=== PATIENT | male | born 1950 | race Caucasian/White ===

== ENCOUNTER 2016-09-03 04:11 | Inpatient (IN) ==
[2016-08-28 15:51] LABS: MANUAL DIFF NEEDED? NO; URINE MICRO REVIEW NEEDED? NO; URINE SOURCE CLEAN CATCH
[2016-08-28 15:54] LABS: BASO% 0.4 % (0.0-0.8); EOS% 3.2 % (0.0-10.0); HEMATOCRIT 51.9 % (42.0-52.0); HEMOGLOBIN 17.6 g/dL (14.0-18.0); IMM GRAN# 0.03 X1000 (0.0-0.04); IMM GRAN% 0.3 % (0.0-0.5); LYMPH# 2.29 X1000 (1.2-3.4); LYMPH% 24.3 % (20.5-51.1); MCH 29.7 PG (27-31); MCHC 33.9 g/dL (33-37); MCV 87.5 FL (81-99); MONO# 1.42 X1000 (0.11-0.59); MONO% 15.1 % (1.7-9.3); MPV 9.5 FL (7.4-10.4); NEUT% 56.7 % (42.2-75.2); PLT 208 X1000 (130-400); RBC 5.93 XMIL (4.7-6.1)
[2016-08-28 15:59] LABS: BILIRUBIN URINE NEGATIVE (NEGATIVE); BLOOD URINE NEGATIVE (NEGATIVE); COLOR YELLOW; GLUCOSE URINE NEGATIVE (NEGATIVE); LEUKOCYTES URINE TRACE (NEGATIVE); NITRITE URINE NEGATIVE (NEGATIVE); PH URINE 6.5; PROTEIN URINE NEGATIVE (NEGATIVE); SP GRAVITY URINE 1.015; TURBIDITY URINE CLEAR (CLEAR); UROBILINOGEN URINE 2 mg/dL (NORMAL)
[2016-08-28 16:00] LABS: UR EPITHELIAL CELLS <10 /HPF (<10); URINE BACTERIA NEGATIVE /HPF; URINE RBC <10 /HPF (<10); URINE WBC <10 /HPF (<10)
[2016-08-28 16:03] LABS: PROTIME 10.5 Seconds (9.2-11.7); PTT 28.7 Seconds (22.0-36.0)
[2016-08-28 16:26] LABS: AGAP 12; BUN 15 mg/dL (8-22); CALCIUM 9.4 mg/dL (8.8-10.2); CHLORIDE 97 mmol/L (98-107); COSMO 270; POTASSIUM 4.2 mmol/L (3.5-5.1); SODIUM 135 mmol/L (136-145); TCO2 26 mmol/L (25-35)
--- NOTE | 2016-08-28 17:03 | EKG Report ---
Test Performed on : 08/28/2016 3:23:25 PM Test Reason : PAT Blood Pressure : / mmHG Vent. Rate : 066 BPM Atrial Rate : 066 BPM P-R Int : 126 ms QRS Dur : 102 ms QT Int : 394 ms P-R-T Axes : 031 049 025 degrees QTc Int : 413 ms Normal sinus rhythm. Normal ECG When compared with ECG of 20-DEC-2014 09:11, No significant change was found Confirmed by Izabela GOMEZ, Avinash Hanson ([id number]) on 08/29/2016 3:29:34 PM
[2016-09-03] MEDS ORDERED: REGLAN ONE (08:24)
[2016-09-03] MEDS ORDERED: PEPCID ONE (08:24)
[2016-09-03] MEDS ORDERED: COLACE ONE (08:24)
[2016-09-03] MEDS ORDERED: LYRICA ONE (08:25)
[2016-09-03] MEDS ORDERED: LR 1,000 ML ONE ×2 (08:25→14:13)
[2016-09-03] MEDS ORDERED: CELEBREX ONE (08:25)
[2016-09-03] MEDS ORDERED: KEFZOL 2 GM/D5W 2 GM/50 ML IVPB ONE (08:25)
[2016-09-03] MEDS ORDERED: DIPRIVAN 1% 0 MG/0 ML BOTTLE ONE (10:00)
[2016-09-03] MEDS ORDERED: SODIUM CHLORIDE 0.9% ONE (10:17)
[2016-09-03] MEDS ORDERED: NEOSPORIN G.U. IRRIGANT ONE (10:17)
[2016-09-03] MEDS ORDERED: EXPAREL 1.3% ONE (10:17)
[2016-09-03] MEDS ORDERED: VANCOMYCIN ONE (10:17)
[2016-09-03] MEDS ORDERED: CYKLOKAPRON 1,000 MG/NS 1,000 MG/100 ML IVPB ONE ×2 (10:17→10:18)
[2016-09-03] MEDS ORDERED: TORADOL ONE (10:17)
[2016-09-03] MEDS ORDERED: MARCAINE 0.25% PF/EPI 1:200,000 ONE (10:17)
[2016-09-03 11:25] LABS: URINE MICRO REVIEW NEEDED? NO; URINE SOURCE CATH
[2016-09-03 11:36] LABS: BILIRUBIN URINE NEGATIVE (NEGATIVE); BLOOD URINE NEGATIVE (NEGATIVE); COLOR YELLOW; GLUCOSE URINE NEGATIVE (NEGATIVE); LEUKOCYTES URINE NEGATIVE (NEGATIVE); NITRITE URINE NEGATIVE (NEGATIVE); PROTEIN URINE TRACE mg/dL (NEGATIVE); TURBIDITY URINE CLEAR (CLEAR); UROBILINOGEN URINE 3 mg/dL (NORMAL)
[2016-09-03 11:37] LABS: UR EPITHELIAL CELLS <10 /HPF (<10); URINE BACTERIA NEGATIVE /HPF; URINE RBC <10 /HPF (<10); URINE WBC <10 /HPF (<10)
[2016-09-03] MEDS ORDERED: NS 1,000 ML ONE (13:57)
[2016-09-03] MEDS ORDERED: FENTANYL ONE (14:03)
[2016-09-03] MEDS ORDERED: DIPRIVAN 1% ONE (14:04)
[2016-09-03] MEDS ORDERED: NEOSTIGMINE ONE (14:12)
[2016-09-03] MEDS ORDERED: ROBINUL ONE (14:12)
[2016-09-03] MEDS ORDERED: SODIUM CHLORIDE 0.9% 10 ML ONE (14:12)
[2016-09-03] MEDS ORDERED: ZOFRAN ONE (14:12)
[2016-09-03] MEDS ORDERED: XYLOCAINE-MPF 2% ONE (14:13)
[2016-09-03] MEDS ORDERED: ZEMURON ONE (14:13)
[2016-09-03] MEDS ORDERED: DECADRON ONE (14:13)
[2016-09-03] MEDS ORDERED: OFIRMEV 1000 MG/ISOTONIC SOLN 1,000 MG/100 ML BOTTLE ONE (14:13)
[2016-09-03] MEDS ORDERED: QUELICIN (DOSE) ONE (14:13)
--- NOTE | 2016-09-03 14:31 | Diag Imaging Result Doc PS360 ---
EXAM: KNEE 1-2 VIEWS-RIGHT HISTORY: right TKA TECHNIQUE: Crosstable lateral and AP portable COMMENT: There is apparent revision of the total knee arthroplasty which was present on 08/31/2013. There appears to be appropriate alignment. IMPRESSION: Postsurgical changes. Electronically signed by Steven Simpson 09/03/2016 2:28 PM
[2016-09-03] MEDS: MORPHINE ONE ×2 (14:52→14:57)
[2016-09-03] MEDS ORDERED: MORPHINE IV PRN (16:00)
[2016-09-03] MEDS ORDERED: ZOFRAN PO PRN (16:00)
[2016-09-03] MEDS ORDERED: MILK OF MAGNESIA PO PRN (16:00)
[2016-09-03] MEDS: TYLENOL PO SCH ×2 (16:09→22:00)
[2016-09-03] MEDS: KEFZOL 1 GM/D5W 1 GM/50 ML IVPB IV SCH (18:37)
[2016-09-03] MEDS: NS 1,000 ML IV SCH (18:38)
[2016-09-03] MEDS: OXY IR PO PRN (18:40)
[2016-09-03] MEDS: COLACE PO SCH (21:47)
[2016-09-03] MEDS: PERIDEX MT SCH (21:47)
[2016-09-04] MEDS: NS 1,000 ML IV SCH (03:46)
[2016-09-04] MEDS: KEFZOL 1 GM/D5W 1 GM/50 ML IVPB IV SCH (03:46)
[2016-09-04] MEDS: TYLENOL PO SCH ×2 (03:46→10:58)
[2016-09-04 06:00] LABS: HEMATOCRIT 46.1 % (42.0-52.0); HEMOGLOBIN 15.2 g/dL (14.0-18.0)
[2016-09-04] MEDS ORDERED: XARELTO PO SCH (06:00)
[2016-09-04 06:27] LABS: AGAP 11; BUN 12 mg/dL (8-22); CALCIUM 8.3 mg/dL (8.8-10.2); CHLORIDE 104 mmol/L (98-107); COSMO 282; POTASSIUM 4.6 mmol/L (3.5-5.1); SODIUM 141 mmol/L (136-145); TCO2 26 mmol/L (25-35)
[2016-09-04] MEDS ORDERED: PEPCID PO SCH (09:00)
[2016-09-04] MEDS ORDERED: KEFZOL 2 GM/D5W 2 GM/50 ML IVPB IV ONE (09:00)
[2016-09-04] MEDS: COLACE PO SCH (10:49)
[2016-09-04] MEDS: PERIDEX MT SCH (10:49)
[2016-09-04] MEDS: OXY IR PO PRN (10:58)
[2016-09-04 12:01] VITALS: BP 127/65
--- NOTE | 2016-09-04 13:43 | OPERATIVE NOTE ---
PROCEDURE DATE: 09/03/2016 PREOPERATIVE DIAGNOSIS: Right painful total knee arthroplasty. POSTOPERATIVE DIAGNOSIS: Right painful total knee arthroplasty. PROCEDURE: Revision right total knee arthroplasty with DePuy Sigma TC3 size 4 femur with a size 40 universal fluted stem, a 75 x 16 universal fluted stem, and a size 3 tibial tray with a 53 metaphyseal sleeve, and a 75 x 14 universal fluted stem, 10 mm rotating platform tibial insert. SURGEON: Jd Stallings MD STAFF THERAPIST: EZEQUIEL Vergara SECOND FINE GRADE OPERATOR: Vinicius Mari RN ANESTHESIA: General. IV FLUIDS: 1800 mL lactated Ringer. ESTIMATED BLOOD LOSS: 75 mL. TOURNIQUET TIME: 121 minutes at 350 mmHg. COMPLICATIONS: None. INDICATION: The patient is a pleasant 66-year-old male status post right total knee arthroplasty on 08/31/2013. The patient has had a long standing history of postoperative stiffness and significant pain and discomfort. He has continued pain and discomfort despite and continued worsening symptoms and recommendation to proceed with revision right total knee arthroplasty was offered. Risks and benefits of surgery were explained, including the risks of anesthesia, , bleeding, infection, failure to relieve pain, postop stiffness, nerve injury, blood clots, and other imponderables. All questions were answered, the patient and family wished to proceed with surgery. DESCRIPTION OF PROCEDURE: Patient was taken to the operating room, placed supine on the operating table. Once adequate anesthesia was obtained, patient's right lower extremity was subsequently prepped and draped in the usual sterile fashion. Esmarch was used to exsanguinate the right lower extremity. The tourniquet was inflated to 350 mmHg. A standard anterior incision made through the previous surgical incision. Medial and skin envelopes were developed. Standard medial parapatellar arthrotomy was then performed. Intraoperative cultures were obtained and a stat Gram stain was negative. There were no signs symptoms of infection. After adequate dissection and elevation had been performed, retractors were placed. The tibial insert was then removed. Attention was then turned to the distal femur where osteotome was used around the femoral component to loosen the component and then subsequently removed. A saw was then used just inferior to the tibial component proximal for removal of this as well. The tibial tray was then removed. The cement was then removed with a small osteotome on the tibia. After removal of all cement and further dissection of scar tissue of posterior capsule was excised off the proximal tibia. After this had been performed, attention then turned to the proximal tibia. Sequential reaming was then conducted up to size 14. The proximal tibia was then over reamed. Sequential broaching was then performed metaphyseal sleeve up to a size and 53 and had a good fit. It was countersunk a mm or 2 and then resected off the proximal tibia. After this had been performed, this was then removed. The trial size 3 tibial component with a 53 metaphyseal sleeve and a 75 x 14 stem was then placed in position. Attention was then turned to the distal femur where sequential reaming was then conducted up to size 16. The broaching was then conducted with the metaphyseal sleeve up to a size 40 mm. After this had been performed, the distal femoral cut was then performed first. The chamfer cutting block was placed in position with the knee held in 90 degrees of flexion. A spacer block was placed to set the rotation, then pins were then placed. Anterior, posterior, and chamfer cuts were then made. The patient did require augmentation posteriorly to size 8 mm on the posterior aspect of the component bilaterally. The trial component was then placed in position. The knee was carried through range of motion and after appropriate cuts had been performed, after the trial component was repositioned, box cutting guide was placed in position, box cut was performed. The trial component was then placed and had acceptable soft tissue balancing and range of motion. The trial components were then removed. Copious irrigation then performed with antibiotic pulsatile lavage while vancomycin was mixed with cement on back table. The components were then assembled on the back table. With the size 3 tibial tray, 53 mm metaphyseal sleeve a 75 x 14 stem and the size 4 femoral component with femoral sleeve and a 75 x 16 stem. The cement was then placed 1st in the proximal tibia. After the irrigation had been completed , this was followed by the tibial construct and it was then packed in position, had good fit. Excess cement was removed with a Griffin. The femoral construct was then impacted in position with cementing placed in standard fashion and excess cement with a Griffin. A trial tibial insert was then placed and had full extension and axial loading was maintained while cement cured. Exparel was placed in the deep soft tissue, as well as subcutaneous tissue while the cement was curing. A size 10 mm rotating platform tibial insert appeared to correct size. This trial tibial insert was removed. Exparel was placed in the deep posterior capsule. The wound was copiously irrigated once again with antibiotic pulsatile lavage. A 10 mm rotating platform tibial insert was then placed and the knee was carried through range of motion. Had good range of motion, good soft tissue balancing. A one-eighth Hemovac drain was placed and was not sewn in. Copious irrigation then performed again with antibiotic pulsatile lavage. A lateral release was performed on the patella and had good patellofemoral tracking. Final irrigation was then conducted. Number 1 Vicryl was used to repair the arthrotomy, followed by 2-0 Vicryl in the subcutaneous tissue , and skin zabrina. Adaptic, sterile 4x4s, Webril, cryo unit, Peter wrap was applied to the right lower extremity. Patient tolerated the procedure well, no complications, transferred to the recovery room in stable condition. cc: Jd Stallings MD MTDD
== END 2016-09-04 14:42 | disposition home health service (06) ==
LOC: SURHOLD 04:11 → 4N 15:35
PROVIDERS: ADMIT Orthopaedic Surgery Adult Reconstructive Orthopaedic Surgery; ATTEND Orthopaedic Surgery Adult Reconstructive Orthopaedic Surgery

== ENCOUNTER 2018-05-08 02:35 | Observation (INO) ==
[2018-05-08] MEDS ORDERED: G.I. COCKTAIL PO ONE (02:56)
[2018-05-08] MEDS ORDERED: MORPHINE IV ONE (02:57)
[2018-05-08] MEDS ORDERED: ZOFRAN IV ONE (02:57)
--- NOTE | 2018-05-08 03:06 | EKG Report ---
Test Performed on : 05/08/2018 02:43:19 AM Test Reason : chest pain Blood Pressure : / mmHG Vent. Rate : 068 BPM Atrial Rate : 068 BPM P-R Int : 134 ms QRS Dur : 096 ms QT Int : 398 ms P-R-T Axes : 039 056 038 degrees QTc Int : 423 ms Normal sinus rhythm. Cannot rule out Anterior infarct , age undetermined Abnormal ECG When compared with ECG of 28-AUG-2016 15:23, No significant change was found Unconfirmed Result
--- NOTE | 2018-05-08 03:09 | PROVIDER DOCUMENTATION ---
HPI-Chest Pain - General Chief Complaint: Chest Pain Stated Complaint: chest pain worse when takes a breath ,started Time Seen by Provider: 05/08/18 02:44 Source: patient Allergies/Adverse Reactions: Patient Allergies Allergy/AdvReac Type Severity Reaction Status Date / Time carbamazepine [From Tegretol] Allergy HIVES Verified 05/08/18 02:40 Home Medications: Home Medication List Medication Instructions Recorded Confirmed Last Taken Type NK [No Home Medications] 05/08/18 05/08/18 Unknown History - History of Present Illness-CP Nature of Presenting Problem: Pt states that he woke up about 1 am with substernal chest pain that radiated to his rt jaw. Location: reports: substernal Chest Pain Radiation: reports: jaw Quality of Pain: reports: aching, pressure Severity in ED: moderate Onset/Duration: 1/2 hour ago Timing: still present, intermittent Context/Activities at Onset: reports: sleep Modifying Factors: improves with: nothing Associated Symptoms: reports: denies symptoms Nitro Today/Relief: no nitro taken today Aspirin Treatment Today: 325 mg x 1 Prior Chest Pain/Cardiac Workup: reports: no prior chest pain, no prior cardiac workup Similar Symptoms Previously?: No Recently Seen Here or By Another Healthcare Provider: No Review of Systems - Adult - REVIEW OF SYSTEMS - ADULT Constitutional: reports: no symptoms reported, see HPI Eyes: reports: no symptoms reported, see HPI Ears, Nose, Mouth & Throat: reports: no symptoms reported, see HPI Cardiovascular: reports: see HPI, chest pain Respiratory: reports: no symptoms reported, see HPI Gastrointestinal: reports: no symptoms reported, see HPI Genitourinary: reports: no symptoms reported, see HPI Musculoskeletal: reports: no symptoms reported, see HPI Integumentary: reports: no symptoms reported, see HPI Neurological: reports: no symptoms reported, see HPI Psychiatric: reports: no symptoms reported, see HPI Endocrine: reports: no symptoms reported, see HPI Hematologic/Lymphatic: reports: no symptoms reported, see HPI Allergic/Immunologic: reports: no symptoms reported, see HPI All Other Systems: Reviewed and Negative Past History - Adult - PAST MEDICAL HISTORY-ADULT Review of Records: reports: Nursing Assessment Review, Medications Reviewed, Social history reviewed & non-contributory. Major Childhood Illnesses: reports: denies history Cardiovascular: reports: denies history Respiratory: reports: denies history Gastrointestinal: reports: denies history Obstetrical/Gynecological: reports: denies history Genitourinary: reports: denies history Musculoskeletal: reports: denies history Neurological: reports: Seizures/Epilepsy Endocrine/Immune: reports: denies history Other Conditions: reports: denies history - PRIOR SURGERIES/PROCEDURES Surgical/Procedure History: reports: cholecystectomy, hernia repair, orthopedic (extremity) - IMMUNIZATION STATUS Childhood Immunizations: See Nurse Assessment Flu Vaccine: See Nurse Assessment Physical Exam-General - PHYSICAL EXAM-ADULT Initial Vital Signs Reviewed: Yes - CONSTITUTIONAL General Appearance: appears well, alert, no apparent distress - EYES Eyes: PERRL/EOMI - HEAD, EARS, NOSE, MOUTH & THROAT HENMT: normocephalic/atraumatic, moist mucous membranes, normal ENT inspection - NECK Neck: non-tender, full range of motion, supple, normal inspection - RESPIRATORY Respiratory: chest non-tender, lungs clear, normal breath sounds, no pleuratic chest pain, no respiratory distress, no accessory muscle use - CARDIOVASCULAR Cardiovascular: normal peripheral pulses, regular rate, rhythm, no edema, no gallop, no JVD, no murmur - GASTROINTESTINAL (ABDOMEN) Abdominal Exam: normal bowel sounds, non tender, soft, no organomegaly, no pulsatile mass - LYMPHATIC Lymphatic: no adenopathy - MUSCULOSKELETAL Back Exam: normal inspection, no CVA tenderness, no vertebral tenderness Extremity: normal range of motion, non-tender, normal gait, normal inspection - SKIN Integumentary: normal color, normal turgor - NEUROLOGIC Neurologic: tool checker II-XII nml as tested, grossly normal, no motor/sensory deficits - PSYCHIATRIC Psych/Mental Status: normal mood/affect, normal thought content, normal thought process, oriented x 3 Progress - PLAN OF CARE/RESULTS Progress/Plan/Lab Results: Vital Signs - 8 hr 05/08/18 02:36 Pulse Rate 70 Respiratory Rate 16 Blood Pressure 178/88 O2 Sat by Pulse Oximetry 98 Laboratory Results - last 24 hr 05/08/18 05/08/18 05/08/18 02:40 02:40 02:40 WBC 8.99 RBC 5.66 Hgb 16.6 Hct 50.4 MCV 89.0 MCH 29.3 MCHC 32.9 L RDW Std Deviation 14.1 Plt Count 228 MPV 9.4 Immature Gran % (Auto) 0.4 Neut % (Auto) 61.9 Lymph % (Auto) 21.0 [place] % (Auto) 11.0 H Eos % (Auto) 5.0 Baso % (Auto) 0.7 Immature Gran # (Auto) 0.04 Neut # (Auto) 5.56 Lymph # (Auto) 1.89 [place] # (Auto) 0.99 H Eos # (Auto) 0.45 Baso # (Auto) 0.06 PT INR PTT (Actin FS) Sodium 138 Potassium 4.2 Chloride 101 Carbon Dioxide 27 Anion Gap 10 BUN 18 Creatinine 1.4 H Estimated GFR/1.73 m2 50 BUN/Creatinine Ratio 13 Glucose 105 H Calculated Osmolality 278 Calcium 9.4 Total Bilirubin 0.30 AST 11 ALT 18 Alkaline Phosphatase 104 Troponin T Jaq-K-[id number] Pept 77 Total Protein 6.8 Albumin 3.5 Globulin 3.0 Albumin/Globulin Ratio 1.0 05/08/18 05/08/18 02:40 05:01 WBC RBC Hgb Hct MCV MCH MCHC RDW Std Deviation Plt Count MPV Immature Gran % (Auto) Neut % (Auto) Lymph % (Auto) [place] % (Auto) Eos % (Auto) Baso % (Auto) Immature Gran # (Auto) Neut # (Auto) Lymph # (Auto) [place] # (Auto) Eos # (Auto) Baso # (Auto) PT 12.5 INR 0.89 PTT (Actin FS) 33.9 Sodium Potassium Chloride Carbon Dioxide Anion Gap BUN Creatinine Estimated GFR/1.73 m2 BUN/Creatinine Ratio Glucose Calculated Osmolality Calcium Total Bilirubin AST ALT Alkaline Phosphatase Troponin T < 0.010 Lkv-D-Njmjlwmotww Pept Total Protein Albumin Globulin Albumin/Globulin Ratio Orders Category Date Time Status CHEST-PORTABLE [RAD] Stat Exams 05/08/18 02:50 Completed CBC WITH ELECTRONIC DIFF [HEME] Stat Lab 05/08/18 02:40 Completed COMPREHENSIVE METABOLIC PANEL [CHEM] Stat Lab 05/08/18 02:40 Completed PRO B-NATRIURETIC PEPTIDE Stat Lab 05/08/18 02:40 Completed PROTIME WITH INR [COAG] Stat Lab 05/08/18 02:40 Completed PTT [COAG] Stat Lab 05/08/18 02:40 Completed TROPONIN T Stat Lab 05/08/18 05:01 Completed Aracelio/Pride Alk/Al&mg Hydrox [G.i. Cocktail] Med 05/08/18 02:56 Discontinued 30 ml PO NOW ONE Morphine Med 05/08/18 02:57 Discontinued 2 mg IV NOW ONE Ondansetron [Zofran] Med 05/08/18 02:57 Discontinued 4 mg IV NOW ONE EKG [EKG] Stat Ther 05/08/18 02:50 Draft At recheck pt notes that his symptoms resolved in the ER with meds. Result Diagrams: 05/08/18 02:40 05/08/18 02:40 - EKG 1 Time of EKG reading by physician:: 02:43 EKG Read and Signed by:: Yadiel Thomason EKG Interpretation (*Must complete 3 of following elements*): Normal Rate: 68 [place]: normal QRS: normal PA Interval: normal ST Wave: normal - XRAY 1 XRAY Study: Chest Impression: Normal (EXAM: CHEST-PORTABLE HISTORY: chest pain TECHNIQUE: Chest single view COMPARISON: 08/29/2013 FINDINGS: Poor inspiratory effort. The heart is not enlarged. The vessels are not distended. There are no infiltrates. No effusion identified. IMPRESSION: Negative exam. Electronically signed by Hima Brunner 05/08/2018 5:28 AM 05/08/18527 Interpreting Physician: Hima Brunner MD Dictated Date/Time: 05/08/18526 cc: Yadiel Thomason MD; Sabino Bailey MD) - CONSULTS/PCP/HOSPITALIST Notification #1 *Consult/PCP/Hospitalist*: Dr Lombardo Time Discussed: 06:27 Consult Disposition: Admit Departure - Departure Date of Disposition Decision: 05/08/18 Time of Disposition Decision: 06:28 DIAGNOSIS: Chest pain Disposition: ADMITTED INPATIENT 09 Certified Medical Emergency: Emergent Condition: Fair Referrals and Follow-Ups: Sabino Bailey MD [Primary Care Provider] - - Critical Care Note This patient required my direct & personal management of CC.: No Attestation - Physician/ KEE Attestation Patient care was provided by Advanced Practice Provider:: No The physician spent face to face time with patient:: Yes Advanced Practice Provider documentation review:: Supervising physician onsite and consulted in the evaluation and care of this patient. The physician did have a face to face encounter with the patient.
[2018-05-08 03:19] LABS: BASO# 0.06 X1000 (0.0-0.2); BASO% 0.7 % (0.0-0.8); EOS# 0.45 X1000 (0.0-0.7); HEMATOCRIT 50.4 % (42.0-52.0); HEMOGLOBIN 16.6 g/dL (14.0-18.0); IMM GRAN# 0.04 X1000 (0.0-0.04); IMM GRAN% 0.4 % (0.0-0.5); LYMPH# 1.89 X1000 (1.2-3.4); MCH 29.3 PG (27-31); MCHC 32.9 g/dL (33-37); MONO# 0.99 X1000 (0.11-0.59); MPV 9.4 FL (7.4-10.4); NEUT# 5.56 X1000 (1.4-6.5); NEUT% 61.9 % (42.2-75.2); PLT 228 X1000 (130-400); RBC 5.66 XMIL (4.7-6.1); RDW 14.1 % (11.5-14.5); WBC 8.99 X1000 (4.8-10.8)
[2018-05-08 03:21] LABS: INR 0.89; PROTIME 12.5 Seconds (11.0-16.0)
[2018-05-08 03:22] LABS: PTT 33.9 Seconds (22.3-41.8)
[2018-05-08 03:34] LABS: ALBUMIN 3.5 g/dL (3.5-5.0); CALCIUM 9.4 mg/dL (8.8-10.2); CREATININE 1.4 mg/dL (0.7-1.2); POTASSIUM 4.2 mmol/L (3.5-5.1); TOTAL BILIRUBIN 0.3 mg/dL (0.20-1.00); TOTAL PROTEIN 6.8 g/dL (6.3-8.3)
--- NOTE | 2018-05-08 05:30 | Diag Imaging Result Doc PS360 ---
EXAM: CHEST-PORTABLE HISTORY: chest pain TECHNIQUE: Chest single view COMPARISON: 08/29/2013 FINDINGS: Poor inspiratory effort. The heart is not enlarged. The vessels are not distended. There are no infiltrates. No effusion identified. IMPRESSION: Negative exam. Electronically signed by Hima Brunner 05/08/2018 5:28 AM
[2018-05-08] MEDS ORDERED: NITROGLYCERIN SL PRN (06:33)
[2018-05-08] MEDS ORDERED: MORPHINE IV PRN (06:33)
[2018-05-08] MEDS ORDERED: ZOFRAN IV PRN (06:34)
[2018-05-08] MEDS: ASPIRIN PO SCH (10:19)
--- NOTE | 2018-05-08 13:26 | EKG Report ---
Test Performed on : 05/08/2018 12:31:25 PM Test Reason : REPEAT Blood Pressure : / mmHG Vent. Rate : 054 BPM Atrial Rate : 054 BPM P-R Int : 132 ms QRS Dur : 092 ms QT Int : 424 ms P-R-T Axes : 052 056 056 degrees QTc Int : 402 ms Sinus bradycardia. Otherwise normal ECG When compared with ECG of 08-MAY-2018 02:43, (Unconfirmed) No significant change was found Unconfirmed Result
--- NOTE | 2018-05-08 13:42 | HISTORY AND PHYSICAL ---
CHIEF COMPLAINT: Chest pain. HISTORY OF PRESENT ILLNESS: This is a 67-year-old gentleman with a history of COPD and tobacco abuse, who presents to the emergency room after waking up around 1 a.m. with substernal chest pain that radiated to his right jaw. He describes this as an aching, pressure type pain. It did come and go. He denies any exacerbating or alleviating factors or any prior episodes. He denied any palpitations, any diaphoresis. PAST MEDICAL HISTORY: COPD. PAST SURGICAL HISTORY: Cholecystectomy, hernia repair, total knee replacement. SOCIAL HISTORY: He is , lives with his . He smokes a pack a day. He denies alcohol or illicit drug use. ALLERGIES: Tegretol which causes hives. HOME MEDICATIONS: A list will be obtained by the nursing staff, reviewed and restarted as appropriate. REVIEW OF SYSTEMS: Discussed with patient with pertinent positives stated in HPI. He denied any syncope, dizziness, palpitations, any diaphoresis, shortness of breath, cough, fever or chills, recent weight loss or weight gain, any PND, orthopnea, nausea, vomiting, diarrhea, constipation, black or bloody vomitus or stools, any hematuria, dysuria, frequency, urgency. PHYSICAL EXAMINATION: GENERAL: This is a 67-year-old gentleman, who is sitting up in the bed in no distress. VITAL SIGNS: Blood pressure is 122/57 with heart rate of 66, respirations are 20, temperature is 97.6 degrees oral with O2 saturations 96 to 98 percent. EYES: Pupils are equal, round, react to light. EOMS are intact. Sclerae are anicteric. HEENT: Head is normocephalic, atraumatic. Mucous membranes are moist. NECK: Supple with trachea midline. CARDIOVASCULAR: Regular rate and rhythm. S1 and S2 are appreciated. He has no murmur. He has no lower extremity edema with peripheral pulses palpable x4 extremities. PULMONARY: Breath sounds are clear with no increased work of breathing noted. Chest rises and falls symmetrically with respiration. Chest wall is nontender to palpation. GASTROINTESTINAL: The abdomen is soft, nontender, nondistended with bowel sounds in all 4 quadrants. SKIN: Warm and dry. NEUROLOGIC: He is alert and oriented x3. LABS: WBC is 8.9 with hemoglobin 16.6, hematocrit 50.4, platelets of 228. Sodium is 138, potassium 4.2. BUN 18, creatinine 1.4 with a glucose 105. Troponin is negative. X-RAYS: Chest x-ray revealed a negative exam. Heart is not enlarged. Vessels are not distended. There are no infiltrates, no effusion identified. ASSESSMENT AND PLAN: 1. Chest pain. The patient denies any chest pain at present. We will place him on telemetry. We will continue to trend troponins, as well as cardiac enzymes. We will repeat electrocardiogram at 1 o'clock. 2. Tobacco use and abuse. I did discuss with the patient tobacco cessation, discussing ways to stop, as well as written materials were given per the staff. 3. For deep vein thrombosis prophylaxis will use sequential compression devices. 4. For gastrointestinal prophylaxis, we will use Prilosec. Further treatments pending hospital course. Dictated by EZEQUIEL Aden for Griselda Lombardo MD This chart was documented by, EZEQUIEL Aden and accurately reflects the services performed, treatment plan and medical decisions as attested by the providers signature Griselda Lombardo MD. cc: EZEQUIEL Aden MD
--- NOTE | 2018-05-08 21:38 | HISTORY AND PHYSICAL ---
ADDENDUM: I saw the patient [id number] and discussed his case in detail with nurse practitioner Livier Chakraborty. This is a 67-year-old gentleman who has been admitted with chest pain. I fully agree with the assessment and plan that has been documented by nurse practitioner. cc: Griselda Lombardo MD
[2018-05-09] MEDS: PRILOSEC PO SCH (06:48)
[2018-05-09] MEDS: ASPIRIN PO SCH (09:17)
--- NOTE | 2018-05-09 15:17 | PROGRESS NOTE ---
DATE: 05/09/2018 SUBJECTIVE: Patient denies complaints including any chest pain. OBJECTIVE: Vital Signs: Patient on 2 L of oxygen via nasal cannula. General: Patient is alert and oriented x 3. He does not appear to be in any acute distress. Cardiovascular: 1st and 2nd sounds are audible without any murmurs or gallops. Respiratory: No respiratory distress noted. Bilateral lung air entry is good without any rales or rhonchi. Abdomen: Abdomen is soft, nondistended. It is nontender on palpation and normal bowel sounds are present. DIAGNOSTIC DATA: Serial troponin levels are found to be negative. IMPRESSION: Chest pain in this 67-year-old gentleman who has history of tobacco abuse and also has COPD along with stage 3 chronic kidney disease. PLAN: The patient will be continued on aspirin 325 mg daily and I am going to obtain Cardiology consultation with Dr. Camp who is already here for rounds at [facility] this afternoon. Further recommendations will be given as per Dr. Camp. cc: Griselda Lombardo MD MTDD
[2018-05-09] MEDS: LOPRESSOR PO SCH ×2 (15:47→20:48)
[2018-05-09] MEDS: SODIUM BICARBONATE PO SCH (20:48)
[2018-05-09] MEDS: MUCOMYST 20% MISC SCH (23:09)
[2018-05-10] MEDS: LOPRESSOR PO SCH ×2 (05:01→10:29)
[2018-05-10] MEDS: PRILOSEC PO SCH (06:30)
[2018-05-10 07:28] LABS: AGAP 10; BUN 15 mg/dL (8-22); CHLORIDE 104 mmol/L (98-107); CHOLESTEROL 151 mg/dL (0-200); COSMO 281; CREATININE 0.9 mg/dL (0.7-1.2); ESTIMATED GFR > 60; GLUCOSE 84 mg/dL (70-104); HDL 32 mg/dL (35-55); LDL 105 mg/dL; POTASSIUM 4.4 mmol/L (3.5-5.1); SODIUM 141 mmol/L (136-145); TCO2 26 mmol/L (25-35); TRIGLYCERIDES 72 mg/dL (39-160); VLDL 14 mg/dL
[2018-05-10 10:00] VITALS: BP 149/73
[2018-05-10] MEDS ORDERED: LOVENOX SUBQ ONE (10:06)
--- NOTE | 2018-05-10 10:22 | Diag Imaging Result Doc PS360 ---
EXAM: CT ANGIOGRAM HEART W/WO CONT HISTORY: chest pain TECHNIQUE: As per cardiology protocol. COMPARISON: None. FINDINGS: This report is an over read of the extracardiac structures. Evaluation of the cardiovascular structures will be performed and dictated in a separate report by the waste and batting waste chopper. Extracardiac findings reveal a small hiatal hernia. Coronary artery calcium score is 373.42. Left main is 95.62. Left anterior descending is 71.99. Left circumflex is zero. Right coronary artery is 205.8. Volume score is 290.25 mm3. Percentile ranking between 50 and 75th Moderate plaque burden. Moderate nonobstructive coronary artery disease highly likely. IMPRESSION: 1.Total coronary artery calcium score 373.42. 2.Volume score 290.25 mm 3. 3.Moderate plaque burden. IMPRESSION: This exam was performed using automated exposure control, adjustment of mA or kV according to patient size, and/or use of iterative reconstruction technique. Electronically signed by Dorys Davis 05/10/2018 10:19 AM
[2018-05-10] MEDS ORDERED: NITROGLYCERIN LINGUAL SPRAY ONE (10:27)
[2018-05-10] MEDS: SODIUM BICARBONATE PO SCH (10:30)
[2018-05-10] MEDS: ASPIRIN PO SCH (10:30)
[2018-05-10] MEDS: MUCOMYST 20% MISC SCH (10:31)
--- NOTE | 2018-05-10 10:33 | CARDIOLOGY CONSULTATION ---
DATE: 05/09/2018 REQUESTING PROVIDER: Hospitalist service. CHIEF COMPLAINT: Chest pain. PRIMARY CARE PHYSICIAN: Dr. Bailey. HISTORY OF PRESENT ILLNESS: Mr. Vaughn is a 67-year-old male who presented to the emergency room on 05/08/2018 at about 2:30 in the morning with complaints of sudden onset of pain in the chest, waken up around 1:00 in the morning. It radiated to the jaw. He had not experienced that type of pain. The pain subsided after a number of hours. They performed three troponin levels and all of them are negative, one at 5:00 a.m., one at 2:30 p.m., and then at 9:03 p.m. in the evening. His liver function tests are normal. His proBNP is normal. He is not having any more chest pain. I am seeing him at 3:00 p.m. on 05/09/2018. The patient has no prior history of heart disease. He is lying in bed. He denies having shortness of breath, palpitations, syncope, diaphoresis, nausea, vomiting, or swelling of the legs. PAST MEDICAL HISTORY: His past history is positive for some COPD. He also has some chronic arthritis of the knees. PAST SURGICAL HISTORY: He has had previous right total knee replacement. He has had bilateral inguinal hernia repair in the past. He has had a cholecystectomy. SOCIAL HISTORY: He is to his , Funmi, who is one of our ex-RNs from [facility]. They have been for about nine years. He does have grownup children. 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 He was in the [employer] for ten years. The patient smokes one pack of cigarettes a day. ALLERGIES: The patient has intolerance or allergy to Tegretol. At some point he suffered seizures and it happened twice and he was treated with Tegretol, which caused hives. He has not experienced any further seizures. REVIEW OF SYSTEMS: Other than the aforementioned episode of seizures, nothing significant. No previous heart history. He has taken a stress test before, however he had great difficulty walking on the treadmill. He has no other ongoing symptoms involving multiple systems that have been reviewed. HOME MEDICATIONS: At this time included actually no home medication. FAMILY HISTORY: He has been raised by his aunt and uncle. They did have heart disease, however he does not know much about his biological parents. He has four grownup sisters. The patient does have two children. PHYSICAL EXAMINATION: Blood pressure is 110/45, temperature 98.4, pulse 55, respirations 16. He is awake, alert, oriented, in no distress. HEENT is unremarkable. Chest: Clear to auscultation and percussion. Heart sounds regular and rhythmic. No gallop or murmur. Abdomen is nontender and soft. No masses or hepatosplenomegaly. Extremities show good pulses. No peripheral edema. Neurologic exam: Follows commands. Moves all four extremities. LABORATORY DATA: Sodium is 138, potassium 4.2, BUN 18, creatinine 1.4, chloride 101, carbon dioxide 27. IMAGING STUDIES: His chest x-ray shows no infiltrates. His 12-lead EKG showed sinus rhythm with sinus bradycardia. IMPRESSION: 1. Patient who presented with episode of atypical chest pain happening at night. He does not have exertional angina pectoris. 2. Tobacco user. 3. Reported past history of chronic obstructive pulmonary disease. 4. Knee arthritis, bilateral, with functional limitation. RECOMMENDATIONS: I would suggest to him to consider obtaining a CT angiogram of the heart since that may be more reliable than a Lexiscan stress test. He told me that he cannot walk on a treadmill because of his knees. He has a slight elevation of creatinine. I would suggest to him to hydrate aggressively tonight to minimize any potential deleterious effect from the intravenous dye. I will arrange for CT of the coronary arteries in the morning. Further advice will be forthcoming. cc: MD AUSTIN Feldman
[2018-05-10] MEDS ORDERED: NICODERM PATCH TD PRN (11:09)
--- NOTE | 2018-05-10 13:03 | CTA CORONARY ---
DATE: 05/10/2018 INDICATION: Chest pain, multiple risk factors for coronary heart disease. DESCRIPTION OF PROCEDURE: The patient was brought to the cardiac CT suite. He was pretreated with beta blockers and also given oral hydration and nitroglycerin. Multiple tomographic views of the heart were obtained. The following is a summary of the main findings. FINDINGS: 1. Left atrium and appendage are free of thrombus. The appendage is very large and convoluted. 2. Pulmonary veins have normal morphology. There is no evidence of any unusual venous connection. 3. Pulmonary arteries appear to have normal morphology also. 4. Aortic valve is not calcified. It has 3 cusps. 5. Mitral valve looks morphologically normal. 6. The left ventricle has an end diastolic volume of 120.6 mL. The ejection fraction of the left ventricle is normal at 55%. CORONARY ARTERIES: 1. Left main coronary artery: This vessel arises from the left coronary sinus of Valsalva, and it shows a discrete heavy calcified plaque in its proximal section. I believe there is reduction of the lumen by 70%, and I believe there is soft plaque just proximal to this hard calcified plaque. The left main divides into LAD and circumflex. 2. Left anterior descending coronary artery shows scattered calcification just at the point of origin of a major diagonal branch. There is also calcification going into the major diagonal branch. No discrete stenosis appears to be present. The LAD thereafter tapers down, gives rise to a secondary diagonal branch and then terminates at the level of the apex of the left ventricle without any critical lesions. 3. Circumflex coronary artery: The circumflex coronary artery appears to be small in caliber and gives rise to a sinus bud branch and a high lateral branch which appears to bifurcate. It then gives rise to a secondary marginal branch and a terminal A-V branch. No critical lesions are noted along the circumflex. 4. Right coronary artery: The right coronary artery is a dominant system and gives rise to a conus branch and right ventricular branches. Right coronary artery shows discrete plaque in the proximal portion, in the midportion, and in the distal portion of the vessel without any significant luminal reduction. The most could be about 25% in the distal segment of the right coronary artery. More distally, the right coronary artery gives rise to a very prominent posterior descending branch. At the ostium of the posterior descending branch, there is a calcific plaque. That plaque may be compromising the lumen of the posterior descending branch by 40% to 50%. The posterolateral branch appears to be free of any obstruction. It is a large bifurcating system. PERICARDIUM: The pericardium shows epicardial fat pad. AORTA: The aorta shows some scattered plaque at the level of the arch; however, no ulcerations or other important lesions are identified. CONCLUSIONS: In summary, this study shows: 1. Suggestion of significant left main coronary artery stenosis 70% proximally. There is also suggestion of a 40% to 50% plaque in the distal right coronary at point of origin of the posterior descending branch. The circumflex appears to be free of any significant obstruction. The LAD shows only mild degree of plaque in the midsection of the vessel at the point of origin of the diagonal branch, and no critical lesions are noted in the LAD system or in the circumflex system. 2. Preserved left ventricular systolic function. Ejection fraction is 55%. 3. Mild calcification of the aortic arch. Clinical correlation is recommended. The patient will be advised to undergo left heart catheterization for confirmation of the findings. cc: Slim Camp MD
[2018-05-10] MEDS ORDERED: PRAVACHOL PO SCH (21:00)
--- NOTE | 2018-05-11 04:34 | DISCHARGE SUMMARY ---
ADMISSION DATE: 05/08/2018 DISCHARGE DATE: 05/10/2018 ADDENDUM: The patient came in with chest pain. I guess he is a Dr. Bailey patient. In any case, he was evaluated and he will be transferred to [facility] today. He looks fine. He wants to go home. He had chest pain that was pretty impressive. Dr. Camp felt that CT angiogram would be a better test and he underwent that. However, his cardiac CT showed a calcium sore with a moderate plaque burden. It was felt that he had a significant blockage. I am not sure if that is the LAD. I do not have the CT angiogram yet but he recommended transferring to [facility] so that is what we went ahead and did. He is on aspirin, Lopressor, Lovenox, and pravastatin. This is a [id number] encounter note with EZEQUIEL Galindo. cc: MD Sabino Aaron MD
--- NOTE | 2018-05-11 09:00 | DISCHARGE SUMMARY ---
ADMISSION DATE: 05/08/2018 DISCHARGE DATE: 05/10/2018 PRIMARY CARE PHYSICIAN: Dr. Sabino Bailey. ADMISSION DIAGNOSES: 1. Chest pain. 2. Tobacco use and abuse. DISCHARGE DIAGNOSES: 1. Chest pain with significant blockage per CT angiography of coronary artery. 2. Tobacco use and abuse. SUMMARY OF FINDINGS: This is a 67-year-old male who presented to the emergency room after he woke up around 1 a.m. with substernal chest pain that radiated to his right jaw. Described it as aching, pressure type of pain that came and went. Denied any exacerbating or alleviating factors, or any prior episodes. He was admitted. His cardiac enzymes x3 sets were negative. We did a CT, a coronary angiography that was read by hospice plan administrator as significant left main coronary artery stenosis of 70% proximally. Also suggestion of 40-50% plaque in the distal right coronary artery at the point of origin of the posterior descending branch. It was felt that he should undergo a left heart catheterization to confirm the findings. He was discharged to [facility] for a left heart catheterization. Discharge medications will be addressed by [facility]. We did give him 1 mg/kg of Lovenox x1 subcutaneously, aspirin 325 mg p.o. daily, and pravastatin 20 mg p.o. at bedtime prior to his transfer to [facility]. This is a 35 minute discharge. Dictated by EZEQUIEL Galindo for Santo Plascencia MD cc: EZEQUIEL Galindo MD Gregory S. Cheatham, MD
== END 2018-05-10 11:53 | disposition short-term general hospital (02) ==
LOC: P.ED 02:35 → SUATTDRO 02:36 → INTOOBSV 02:36 → P.EDIPHOLD 02:36 → P.MEDSURG 09:04
PROVIDERS: ATTEND Internal Medicine
CPT/HCPCS: 71010; 71045; 75574; 80048; 80053; 80061; 82550; 83880; 84484; 85025; 85610; 85730; 93005; 94761; 96374; 96375; 99285; A9270; J1650; J2270; J2405; Q9967